=== PATIENT | female | born 1945 | race Caucasian/White ===

== ENCOUNTER 2017-10-28 09:53 | Inpatient (IN) | payer MEDICARE, BC ==
[~2017-10-28] VITALS: Ht 157.5 cm; Wt 53.3 kg
[2017-10-28] VITALS (9 sets, daily range): BP systolic 91–116; BP diastolic 43–66
[~2017-10-28 09:53] MED LIST: AMIT-1; ASPI-1071 PO; ATOR20TA66 PO; CHOL4PAC2; CITA40TA22 PO; CLON0.5T12 PO; DIPH1TAB PO; LEVO137T2 PO; MULT-342 PO
[2017-10-28 10:26] LABS: BASOPHILS % (AUTO) 0.1 % (0-1); EOSINOPHILS # (AUTO) 0.2 X10'3 (0-0.9); EOSINOPHILS % (AUTO) 1.4 % (0-6); HEMATOCRIT 40.9 % (35.0-45.0); HEMOGLOBIN 13.4 g/dl (12.0-16.0); LYMPHOCYTES # (AUTO) 1.2 X10'3 (1.1-4.8); LYMPHOCYTES % (AUTO) 7.5 % (21-51); MEAN CORPUSCULAR HEMOGLOBIN 28.7 PG (27.0-31.0); MEAN CORPUSCULAR HGB CONC 32.6 % (33.0-36.5); MEAN CORPUSCULAR VOLUME 88.2 FL (78-98); MEAN PLATELET VOLUME 8.2 FL (7.4-10.4); MONOCYTES # (AUTO) 0.9 X10'3 (0-0.9); MONOCYTES % (AUTO) 5.8 % (2-12); NEUTROPHILS # (AUTO) 13.8 X10'3 (1.8-7.7); NEUTROPHILS % (AUTO) 85.2 % (42-75); PLATELET COUNT 376 X10'3 (140-440); RED BLOOD COUNT 4.64 X10'6 (4.20-5.60); RED CELL DISTRIBUTION WIDTH 15.5 % (11.5-14.5); WHITE BLOOD COUNT 16.2 X10'3 (4.5-11.0)
[2017-10-28 10:49] LABS: ALANINE AMINOTRANSFERASE 12 U/L (12-78); ALBUMIN 2.9 G/DL (3.4-5.0); ALBUMIN/GLOBULIN RATIO 0.7 (1.1-1.5); ALKALINE PHOSPHATASE 126 IU/L (46-116); ANION GAP 11 (8-16); ASPARTATE AMINO TRANSFERASE 18 U/L (10-37); BILIRUBIN,TOTAL 0.4 MG/DL (0.1-1.0); BLOOD UREA NITROGEN 24 MG/DL (7-18); BUN/CREATININE RATIO 20.9 (6.6-38.0); CALCIUM 8.7 MG/DL (8.5-10.1); CHLORIDE 105 MMOL/L (99-107); CREATININE 1.15 MG/DL (0.40-0.90); GLUCOSE 110 MG/DL (70-104); POTASSIUM 3.1 MMOL/L (3.5-5.1); SODIUM 142 MMOL/L (135-145); TOTAL CARBON DIOXIDE 25.8 MMOL/L (24-32); TOTAL PROTEIN 6.9 G/DL (6.4-8.2); eGFR 47 ML/MIN
[2017-10-28] MEDS ORDERED: levoFLOXACIN-Levaquin 750MG/D5 150 ML IV STA (10:49)
[2017-10-28] MEDS ORDERED: normal saline 1000ml 1,000 ML IV ONE (10:50)
[2017-10-28] MEDS ORDERED: CITA-278 PO (11:13)
[2017-10-28] MEDS ORDERED: BUPR150T8 PO (11:14)
[2017-10-28] MEDS ORDERED: heparin 10,000 units/1 ML INJ IV PRN (11:15)
[2017-10-28] MEDS ORDERED: heparin 10,000 units/1 ML INJ IV ONE (11:15)
[2017-10-28] MEDS ORDERED: aspirin 325mg tablet PO ONE (11:15)
[2017-10-28] MEDS ORDERED: diltiazem-D5W 125mg/125ml 100 ML IV SCH (11:15)
[2017-10-28] MEDS ORDERED: ESCI5TAB PO (11:16)
[2017-10-28] MEDS ORDERED: ESCI20TA PO (11:18)
[2017-10-28] MEDS ORDERED: LEVO150T8 PO (11:20)
[2017-10-28] MEDS ORDERED: PSYL3.4P5 PO (11:26)
[2017-10-28] MEDS ORDERED: morphine 4 MG/ML inj SYRINge IV ONE (11:35)
[2017-10-28] MEDS ORDERED: ondansetron/PF 4mg/2ml inj IV ONE (11:35)
[2017-10-28] MEDS ORDERED: nitroGLYCERIN 0.4mg SUBLingual tab SL PRN (11:35)
[2017-10-28] MEDS ORDERED: iohexol 350MG/ML 100ml bottle IV ONE (11:41)
[2017-10-28] MEDS ORDERED: diltiazem-NS 100mg/100ml 100 ML IV SCH (11:42)
[2017-10-28 11:44] LABS: INR 1.1 INR; PARTIAL THROMBOPLASTIN TIME 32 SECONDS (22-32); PROTHROMBIN TIME 11.6 SECONDS (9.0-12.0)
[2017-10-28] MEDS ORDERED: ondansetron/PF 4mg/2ml inj IV PRN (13:05)
[2017-10-28] MEDS ORDERED: acetaminophen 325mg tablet PO PRN ×2 (13:05)
[2017-10-28] MEDS ORDERED: magnesium Cl slow-release 64mg tablet PO PRN (13:05)
[2017-10-28] MEDS ORDERED: docusate sod 100mg capsule PO PRN (13:05)
[2017-10-28] MEDS ORDERED: magnesium 4gm in 100ml NS 100 ML IV PRN (13:05)
[2017-10-28] MEDS ORDERED: magnesium 1gm/100ml D5W IVPB 100 ML IV PRN (13:05)
[2017-10-28] MEDS ORDERED: potassium Cl 40MEQ/NS 500ml 500 ML IV PRN ×2 (13:05)
[2017-10-28] MEDS ORDERED: potassium Cl 20 mEq SR tablet PO PRN ×2 (13:05)
[2017-10-28] MEDS: diltiazem-NS 100mg/100ml 100 ML IV SCH (13:10)
[2017-10-28] MEDS: traMADol 50MG tablet PO PRN ×2 (13:32→23:31)
[2017-10-28] MEDS: morphine 2 MG/ML inj. syringe IV PRN (15:03)
[2017-10-28] MEDS: normal saline 1000ml 1,000 ML IV SCH ×2 (15:09→23:02)
[2017-10-28] MEDS ORDERED: LIDOcaine 1% 30ml vial 5 ML in potassium Cl 40MEQ/NS 500ml 500 ML IV PRN (15:35)
[2017-10-28] MEDS ORDERED: clonazePAM 0.5mg tablet PO SCH (18:05)
[2017-10-28] MEDS ORDERED: heparin, porcine 5000 units/ml vial SQ SCH (20:00)
[2017-10-28] MEDS: buPROPion SR 150mg tablet PO SCH (20:07)
[2017-10-28] MEDS: clonazePAM 0.5mg tablet PO SCH (20:07)
[2017-10-28] MEDS: loperamide 2mg capsule PO SCH (20:07)
[2017-10-28] MEDS ORDERED: temazepam 15mg capsule PO PRN (21:00)
[2017-10-29] VITALS (17 sets, daily range): BP systolic 97–147; BP diastolic 43–74
[2017-10-29] MEDS: diltiazem-NS 100mg/100ml 100 ML IV SCH (05:27)
[2017-10-29 06:12] LABS: BASOPHILS # (AUTO) 0.1 X10'3 (0-0.2); BASOPHILS % (AUTO) 0.9 % (0-1); EOSINOPHILS # (AUTO) 0.1 X10'3 (0-0.9); EOSINOPHILS % (AUTO) 1.5 % (0-6); HEMOGLOBIN 9.7 g/dl (12.0-16.0); LYMPHOCYTES # (AUTO) 1.2 X10'3 (1.1-4.8); MEAN CORPUSCULAR HEMOGLOBIN 28.6 PG (27.0-31.0); MEAN CORPUSCULAR HGB CONC 32.5 % (33.0-36.5); MEAN PLATELET VOLUME 9.6 FL (7.4-10.4); MONOCYTES # (AUTO) 0.7 X10'3 (0-0.9); MONOCYTES % (AUTO) 7.3 % (2-12); NEUTROPHILS # (AUTO) 7.4 X10'3 (1.8-7.7); NEUTROPHILS % (AUTO) 77.3 % (42-75); PLATELET COUNT 254 X10'3 (140-440); RED BLOOD COUNT 3.41 X10'6 (4.20-5.60); RED CELL DISTRIBUTION WIDTH 14.2 % (11.5-14.5); WHITE BLOOD COUNT 9.5 X10'3 (4.5-11.0)
[2017-10-29 06:21] LABS: ALANINE AMINOTRANSFERASE 13 U/L (12-78); ALBUMIN 2.3 G/DL (3.4-5.0); ALBUMIN/GLOBULIN RATIO 0.7 (1.1-1.5); ALKALINE PHOSPHATASE 151 IU/L (46-116); ANION GAP 8 (8-16); ASPARTATE AMINO TRANSFERASE 17 U/L (10-37); BILIRUBIN,TOTAL 0.4 MG/DL (0.1-1.0); BLOOD UREA NITROGEN 18 MG/DL (7-18); BUN/CREATININE RATIO 19.4 (6.6-38.0); CALCIUM 8.1 MG/DL (8.5-10.1); CHLORIDE 107 MMOL/L (99-107); CREATININE 0.93 MG/DL (0.40-0.90); GLUCOSE 81 MG/DL (70-104); MAGNESIUM 1.8 MG/DL (1.5-2.4); SODIUM 140 MMOL/L (135-145); TOTAL CARBON DIOXIDE 24.6 MMOL/L (24-32); TOTAL PROTEIN 5.7 G/DL (6.4-8.2); eGFR 59 ML/MIN
[2017-10-29] MEDS ORDERED: regadenoson 0.4mg/5ml syringe IV ONE ×2 (07:10→11:18)
[2017-10-29] MEDS ORDERED: CAFFEINE CITRATE 60 MG/3 ML injection vial IV PRN (07:10)
[2017-10-29] MEDS ORDERED: nitroGLYCERIN 0.4mg SUBLingual tab SL PRN (07:10)
[2017-10-29] MEDS ORDERED: metoprolol tartrate 1mg/ml inj IV PRN (07:10)
[2017-10-29] MEDS: buPROPion SR 150mg tablet PO SCH ×2 (07:38→20:16)
[2017-10-29] MEDS: citalopram 20mg tablet PO SCH (07:39)
[2017-10-29] MEDS: levoTHYROXINE 75mcg tablet PO SCH (07:39)
[2017-10-29] MEDS: clonazePAM 0.5mg tablet PO SCH ×3 (07:40→20:16)
[2017-10-29] MEDS: loperamide 2mg capsule PO SCH ×2 (07:40→20:15)
[2017-10-29] MEDS: normal saline 1000ml 1,000 ML IV SCH ×2 (07:49→21:32)
[2017-10-29] MEDS ORDERED: CefTRIAXone 2gm/D5W 50ml 50 ML IV SCH (08:00)
[2017-10-29] MEDS ORDERED: K and/or MAG REPLACEMENT MC SCH (08:00)
[2017-10-29 08:13] LABS: CHOL/HDL RATIO 2.5 (0.00-4.99); CHOLESTEROL 115 MG/DL (0-200); HDL CHOLESTEROL 46 MG/DL (35-60); LDL CHOLESTEROL 53 MG/DL (50-100); TRIGLYCERIDES 62 MG/DL (20-135)
[2017-10-29] MEDS: atorvastatin 20mg tablet PO SCH (10:25)
[2017-10-29] MEDS: metoprolol tartrate 25mg tablet PO SCH ×2 (10:26→20:15)
[2017-10-29] MEDS: aspirin 81mg tablet.DR PO SCH (10:26)
[2017-10-29] MEDS ORDERED: CAFFEINE CITRATE 60 MG/3 ML injection vial IV ONE (11:17)
[2017-10-29] MEDS: morphine 2 MG/ML inj. syringe IV PRN (15:02)
[2017-10-29] MEDS: apixaban 2.5mg tablet PO SCH (20:14)
[2017-10-29] MEDS: lactobacillus rhamnosus 10,000 MMU CELLS/CAPSULE PO SCH (20:14)
[2017-10-29] MEDS: indomethacin 25mg capsule PO SCH (20:14)
[2017-10-29] MEDS ORDERED: colchicine 0.6mg tablet PO SCH (21:00)
[2017-10-30 02:00] VITALS: BP 142/73
[2017-10-30] MEDS: traMADol 50MG tablet PO PRN (03:10)
[2017-10-30 06:05] LABS: BASOPHILS % (AUTO) 0.3 % (0-1); EOSINOPHILS # (AUTO) 0.1 X10'3 (0-0.9); EOSINOPHILS % (AUTO) 1.1 % (0-6); HEMATOCRIT 30.1 % (35.0-45.0); LYMPHOCYTES # (AUTO) 1.1 X10'3 (1.1-4.8); LYMPHOCYTES % (AUTO) 11.9 % (21-51); MEAN CORPUSCULAR HEMOGLOBIN 28.7 PG (27.0-31.0); MEAN CORPUSCULAR HGB CONC 33.1 % (33.0-36.5); MEAN CORPUSCULAR VOLUME 86.6 FL (78-98); MEAN PLATELET VOLUME 9.1 FL (7.4-10.4); MONOCYTES # (AUTO) 0.7 X10'3 (0-0.9); NEUTROPHILS # (AUTO) 7.5 X10'3 (1.8-7.7); NEUTROPHILS % (AUTO) 79.7 % (42-75); PLATELET COUNT 262 X10'3 (140-440); RED BLOOD COUNT 3.47 X10'6 (4.20-5.60); WHITE BLOOD COUNT 9.4 X10'3 (4.5-11.0)
[2017-10-30 06:10] VITALS: BP 138/64
[2017-10-30 06:15] LABS: ALANINE AMINOTRANSFERASE 14 U/L (12-78); ALBUMIN 2.3 G/DL (3.4-5.0); ALBUMIN/GLOBULIN RATIO 0.7 (1.1-1.5); ALKALINE PHOSPHATASE 225 IU/L (46-116); ANION GAP 9 (8-16); ASPARTATE AMINO TRANSFERASE 17 U/L (10-37); BILIRUBIN,TOTAL 0.2 MG/DL (0.1-1.0); BLOOD UREA NITROGEN 20 MG/DL (7-18); BUN/CREATININE RATIO 21.7 (6.6-38.0); CALCIUM 8.5 MG/DL (8.5-10.1); CHLORIDE 108 MMOL/L (99-107); CREATININE 0.92 MG/DL (0.40-0.90); GLUCOSE 102 MG/DL (70-104); MAGNESIUM 1.7 MG/DL (1.5-2.4); SODIUM 141 MMOL/L (135-145); TOTAL CARBON DIOXIDE 24.4 MMOL/L (24-32); TOTAL PROTEIN 5.7 G/DL (6.4-8.2); eGFR 60 ML/MIN
[2017-10-30] MEDS ORDERED: levoTHYROXINE 25mcg tablet PO SCH (07:00)
[2017-10-30] MEDS ORDERED: pantoprazole 40mg Tablet.DR PO SCH (07:30)
[2017-10-30] MEDS: buPROPion SR 150mg tablet PO SCH (08:41)
[2017-10-30] MEDS: atorvastatin 20mg tablet PO SCH (08:41)
[2017-10-30] MEDS: aspirin 81mg tablet.DR PO SCH (08:41)
[2017-10-30] MEDS: lactobacillus rhamnosus 10,000 MMU CELLS/CAPSULE PO SCH (08:41)
[2017-10-30] MEDS: metoprolol tartrate 25mg tablet PO SCH ×2 (08:41→08:56)
[2017-10-30] MEDS: apixaban 2.5mg tablet PO SCH (08:42)
[2017-10-30] MEDS: loperamide 2mg capsule PO SCH (08:42)
[2017-10-30] MEDS: clonazePAM 0.5mg tablet PO SCH ×2 (08:42→12:24)
[2017-10-30] MEDS: levoTHYROXINE 75mcg tablet PO SCH (08:57)
[2017-10-30] MEDS: citalopram 20mg tablet PO SCH (08:58)
[2017-10-30] MEDS: normal saline 1000ml 1,000 ML IV SCH (10:02)
[2017-10-30 11:00] VITALS: BP 121/68
[2017-10-30] MEDS: indomethacin 25mg capsule PO SCH (12:24)
[2017-10-30] MEDS ORDERED: COL0.6T PO (14:55)
[2017-10-30] MEDS ORDERED: ATOR20TA66 PO (14:55)
[2017-10-30] MEDS ORDERED: METO25TA6 PO (14:55)
[2017-10-30] MEDS ORDERED: LEVO25TA7 PO (14:55)
[2017-10-30] MEDS ORDERED: APIX2.5T PO (14:55)
[2017-10-30 15:00] VITALS: BP 154/70
== END 2017-10-30 16:40 | disposition home or self-care (01) | DRG 871 ==
LOC: ER 09:53 → ED HOLD 13:02 → PCU 3S 14:32
PROVIDERS: ADMIT Internal Medicine; ATTEND Family Medicine
PROC: 4A02XM4 Measurement of Cardiac Total Activity, External Approach (ICD-10-PCS; principal; 2017-10-29)
PROC: 3E033HZ Introduction of Radioactive Substance into Peripheral Vein, Percutaneous Approach (ICD-10-PCS; 2017-10-29)
DX: A41.9 Sepsis, unspecified organism (principal); N17.0 Acute kidney failure with tubular necrosis; I31.3 Pericardial effusion (noninflammatory); J90 Pleural effusion, not elsewhere classified; K91.2 Postsurgical malabsorption, not elsewhere classified; I31.9 Disease of pericardium, unspecified; N18.9 Chronic kidney disease, unspecified; E03.9 Hypothyroidism, unspecified; E87.6 Hypokalemia; F41.9 Anxiety disorder, unspecified; I35.1 Nonrheumatic aortic (valve) insufficiency; I48.91 Unspecified atrial fibrillation; R94.6 Abnormal results of thyroid function studies; M25.512 Pain in left shoulder; K52.9 Noninfective gastroenteritis and colitis, unspecified; W01.0XXA Fall on same level from slipping, tripping and stumbling without subsequent striking against object, initial encounter; Z90.710 Acquired absence of both cervix and uterus; Z90.49 Acquired absence of other specified parts of digestive tract; Z98.84 Bariatric surgery status; Z88.5 Allergy status to narcotic agent; Z79.899 Other long term (current) drug therapy; Z79.01 Long term (current) use of anticoagulants; Z85.42 Personal history of malignant neoplasm of other parts of uterus; Y93.89 Activity, other specified; Y92.238 Other place in hospital as the place of occurrence of the external cause; Y99.8 Other external cause status
CPT/HCPCS: 36415; 70450; 71045; 71250; 73030; 78452; 80053; 80061; 83605; 83735; 83880; 84443; 84484; 85025; 85610; 85651; 85730; 86140; 87040; 93005; 93017; 93306; A9500; J0696; J1644; J1956; J2270; J2405; J3480; J3490; J7030; Q9967

== ENCOUNTER 2017-11-07 19:54 | Inpatient (IN) | payer MEDICARE, BC ==
[~2017-11-07] VITALS: Ht 162.6 cm; Wt 52.1 kg
[~2017-11-07 19:54] MED LIST changes: -AMIT-1; +APIX2.5T PO; -ASPI-1071 PO; +BUPR150T8 PO; -CHOL4PAC2; -CITA40TA22 PO; +COL0.6T PO; -DIPH1TAB PO; +ESCI20TA PO; -LEVO137T2 PO; +LEVO150T8 PO; +LEVO25TA7 PO; +METO25TA6 PO; +PSYL3.4P5 PO
[2017-11-07 21:29] LABS: BASOPHILS % (AUTO) 0 % (0-1); EOSINOPHILS # (AUTO) 0.1 X10'3 (0-0.9); EOSINOPHILS % (AUTO) 0.8 % (0-6); HEMATOCRIT 34.6 % (35.0-45.0); HEMOGLOBIN 11.6 g/dl (12.0-16.0); LYMPHOCYTES # (AUTO) 1.2 X10'3 (1.1-4.8); LYMPHOCYTES % (AUTO) 7.3 % (21-51); MEAN CORPUSCULAR HEMOGLOBIN 28.2 PG (27.0-31.0); MEAN CORPUSCULAR HGB CONC 33.3 % (33.0-36.5); MEAN CORPUSCULAR VOLUME 84.7 FL (78-98); MEAN PLATELET VOLUME 8.8 FL (7.4-10.4); MONOCYTES # (AUTO) 0.7 X10'3 (0-0.9); MONOCYTES % (AUTO) 4.2 % (2-12); NEUTROPHILS # (AUTO) 13.9 X10'3 (1.8-7.7); NEUTROPHILS % (AUTO) 87.7 % (42-75); PLATELET COUNT 353 X10'3 (140-440); RED BLOOD COUNT 4.09 X10'6 (4.20-5.60); RED CELL DISTRIBUTION WIDTH 14.9 % (11.5-14.5); WHITE BLOOD COUNT 15.9 X10'3 (4.5-11.0)
[2017-11-07] MEDS: nitroGLYCERIN 0.4mg SUBLingual tab SL PRN ×2 (21:36→21:59)
[2017-11-07 22:08] LABS: ALBUMIN 2.5 G/DL (3.4-5.0); ALBUMIN/GLOBULIN RATIO 0.8 (1.1-1.5); ALKALINE PHOSPHATASE 99 IU/L (46-116); ANION GAP 9 (8-16); BILIRUBIN,TOTAL 0.4 MG/DL (0.1-1.0); BLOOD UREA NITROGEN 11 MG/DL (7-18); BUN/CREATININE RATIO 15.1 (6.6-38.0); CALCIUM 8.1 MG/DL (8.5-10.1); CHLORIDE 106 MMOL/L (99-107); CREATINE KINASE 32 U/L (26-192); CREATININE 0.73 MG/DL (0.40-0.90); GLUCOSE 106 MG/DL (70-104); SODIUM 143 MMOL/L (135-145); TOTAL CARBON DIOXIDE 27.8 MMOL/L (24-32); TOTAL PROTEIN 5.7 G/DL (6.4-8.2); eGFR 79 ML/MIN
[2017-11-07 22:10] LABS: D-DIMER 2.11 MG/L FEU (0-0.50); INR 1.2 INR; PARTIAL THROMBOPLASTIN TIME 32 SECONDS (22-32); PROTHROMBIN TIME 12.5 SECONDS (9.0-12.0)
[2017-11-07 22:27] LABS: POTASSIUM 2.9 MMOL/L (3.5-5.1)
[2017-11-07 22:39] LABS: ALANINE AMINOTRANSFERASE 6 U/L (12-78)
[2017-11-07] MEDS ORDERED: Potassium Cl inj 40 MEQ in normal saline 250ml IV soln 230 ML IV ONE (22:40)
[2017-11-07 22:42] LABS: ASPARTATE AMINO TRANSFERASE 9 U/L (10-37)
[2017-11-07] MEDS ORDERED: POTASSIUM CL IV ONE (23:30)
[2017-11-07] MEDS ORDERED: [UNRECOGNIZED DRUG - OTHER] IV ONE (23:30)
[2017-11-07] MEDS: potassium 10mEq/100ml NS w/LIDOcaine (10mg/bag) IV SCH (23:38)
[2017-11-08] MEDS ORDERED: LOPE2TAB23 PO (01:04)
[2017-11-08] MEDS ORDERED: iohexol 350MG/ML 100ml bottle IV ONE (01:05)
[2017-11-08 01:18] LABS: MAGNESIUM 1.6 MG/DL (1.5-2.4)
[2017-11-08] MEDS: potassium 10mEq/100ml NS w/LIDOcaine (10mg/bag) IV SCH ×3 (01:34→02:35)
[2017-11-08] MEDS ORDERED: potassium Cl 20 mEq SR tablet PO STA (02:33)
[2017-11-08] MEDS ORDERED: furosemide 10 MG/1 ML 10ml inj IV ONE (02:35)
[2017-11-08] MEDS ORDERED: potassium Cl 20 mEq SR tablet PO PRN ×4 (02:40→17:15)
[2017-11-08] MEDS ORDERED: magnesium hydroxide 30ml (MOM) UD suspension PO PRN (02:40)
[2017-11-08] MEDS ORDERED: mag hydrox/Alum hydrox/simeth 30ml oral suspension PO PRN (02:40)
[2017-11-08] MEDS ORDERED: ondansetron/PF 4mg/2ml inj IV PRN (02:40)
[2017-11-08] MEDS ORDERED: acetaminophen 325mg tablet PO PRN (02:40)
[2017-11-08] MEDS: indomethacin 25mg capsule PO SCH ×4 (02:40→17:22)
[2017-11-08] MEDS ORDERED: potassium Cl 40MEQ/NS 500ml 500 ML IV PRN ×4 (02:40→17:15)
[2017-11-08] MEDS: buPROPion SR 150mg tablet PO SCH ×2 (03:12→20:31)
[2017-11-08] MEDS: acetaminophen 325mg tablet PO PRN (03:12)
[2017-11-08] MEDS: clonazePAM 0.5mg tablet PO SCH ×4 (03:12→20:33)
[2017-11-08 03:50] LABS: MAGNESIUM 1.1 MG/DL (1.5-2.4); POTASSIUM 4.1 MMOL/L (3.5-5.1)
[2017-11-08 04:10] VITALS: BP 131/65
[2017-11-08 06:00] VITALS: BP 135/73
[2017-11-08] MEDS: psyllium seed 3.4 gm packet PO SCH ×2 (08:00→20:00)
[2017-11-08] MEDS: metoprolol tartrate 25mg tablet PO SCH ×2 (08:13→20:33)
[2017-11-08] MEDS: citalopram 20mg tablet PO SCH (08:14)
[2017-11-08] MEDS: atorvastatin 20mg tablet PO SCH (08:14)
[2017-11-08] MEDS: apixaban 2.5mg tablet PO SCH ×2 (08:14→20:31)
[2017-11-08] MEDS: levoTHYROXINE 75mcg tablet PO SCH (08:56)
[2017-11-08] MEDS: loperamide 2mg capsule PO PRN (08:56)
[2017-11-08] MEDS: multivitamins, therapeutics tablet PO SCH (08:56)
[2017-11-08] MEDS: pantoprazole 40mg Tablet.DR PO SCH (11:45)
[2017-11-08 15:00] VITALS: BP 116/62
[2017-11-08] MEDS ORDERED: magnesium 4gm in 100ml NS 100 ML IV PRN (17:15)
[2017-11-08] MEDS: magnesium Cl slow-release 64mg tablet PO PRN (17:23)
[2017-11-08 19:00] VITALS: BP 146/76
[2017-11-08] MEDS: colchicine 0.6mg tablet PO SCH (20:33)
[2017-11-08 23:00] VITALS: BP 105/60
[2017-11-08] MEDS: nitroGLYCERIN 0.4mg SUBLingual tab SL PRN ×2 (23:44→23:54)
[2017-11-09] MEDS: nitroGLYCERIN 0.4mg SUBLingual tab SL PRN (00:02)
[2017-11-09] MEDS: morphine 2 MG/ML inj. syringe IV PRN (00:30)
[2017-11-09 03:00] VITALS: BP 125/78
[2017-11-09 04:30] LABS: BASOPHILS # (AUTO) 0.1 X10'3 (0-0.2); BASOPHILS % (AUTO) 0.3 % (0-1); EOSINOPHILS % (AUTO) 0.1 % (0-6); HEMOGLOBIN 12.7 g/dl (12.0-16.0); LYMPHOCYTES # (AUTO) 1.2 X10'3 (1.1-4.8); LYMPHOCYTES % (AUTO) 5.4 % (21-51); MEAN CORPUSCULAR HEMOGLOBIN 28.4 PG (27.0-31.0); MEAN CORPUSCULAR HGB CONC 33.4 % (33.0-36.5); MEAN CORPUSCULAR VOLUME 84.9 FL (78-98); MEAN PLATELET VOLUME 9.1 FL (7.4-10.4); MONOCYTES # (AUTO) 1.1 X10'3 (0-0.9); MONOCYTES % (AUTO) 4.9 % (2-12); NEUTROPHILS # (AUTO) 19.1 X10'3 (1.8-7.7); NEUTROPHILS % (AUTO) 89.3 % (42-75); PLATELET COUNT 459 X10'3 (140-440); RED BLOOD COUNT 4.48 X10'6 (4.20-5.60); RED CELL DISTRIBUTION WIDTH 15.1 % (11.5-14.5); WHITE BLOOD COUNT 21.4 X10'3 (4.5-11.0)
[2017-11-09] MEDS: magnesium Cl slow-release 64mg tablet PO PRN (04:31)
[2017-11-09 04:43] LABS: ALBUMIN 2.4 G/DL (3.4-5.0); ANION GAP 9 (8-16); BLOOD UREA NITROGEN 15 MG/DL (7-18); BUN/CREATININE RATIO 16.9 (6.6-38.0); CALCIUM 8.2 MG/DL (8.5-10.1); CHLORIDE 105 MMOL/L (99-107); CREATININE 0.89 MG/DL (0.40-0.90); GLUCOSE 113 MG/DL (70-104); MAGNESIUM 1.6 MG/DL (1.5-2.4); POTASSIUM 3.5 MMOL/L (3.5-5.1); SODIUM 141 MMOL/L (135-145); TOTAL CARBON DIOXIDE 27.2 MMOL/L (24-32); eGFR 63 ML/MIN
[2017-11-09 07:00] VITALS: BP 124/64
[2017-11-09] MEDS: levoTHYROXINE 25mcg tablet PO SCH (07:00)
[2017-11-09] MEDS: psyllium seed 3.4 gm packet PO SCH ×2 (08:00→20:00)
[2017-11-09] MEDS: metoprolol tartrate 25mg tablet PO SCH ×2 (08:25→22:19)
[2017-11-09] MEDS: atorvastatin 20mg tablet PO SCH (08:25)
[2017-11-09] MEDS: pantoprazole 40mg Tablet.DR PO SCH (08:26)
[2017-11-09] MEDS: apixaban 2.5mg tablet PO SCH (08:26)
[2017-11-09] MEDS: citalopram 20mg tablet PO SCH (08:26)
[2017-11-09] MEDS: levoTHYROXINE 75mcg tablet PO SCH (08:27)
[2017-11-09] MEDS: indomethacin 25mg capsule PO SCH ×3 (08:28→17:30)
[2017-11-09] MEDS: multivitamins, therapeutics tablet PO SCH (08:29)
[2017-11-09] MEDS: clonazePAM 0.5mg tablet PO SCH ×3 (08:30→22:21)
[2017-11-09] MEDS: buPROPion SR 150mg tablet PO SCH ×2 (08:40→22:19)
[2017-11-09 11:00] VITALS: BP 117/62
[2017-11-09 15:00] VITALS: BP 132/53
[2017-11-09 19:00] VITALS: BP 119/67
[2017-11-09] MEDS: colchicine 0.6mg tablet PO SCH (22:20)
[2017-11-09 23:00] VITALS: BP 104/55
[2017-11-10] VITALS (15 sets, daily range): BP systolic 88–125; BP diastolic 34–80
[2017-11-10] MEDS: nitroGLYCERIN 0.4mg SUBLingual tab SL PRN ×3 (03:50→04:36)
[2017-11-10] MEDS: morphine 2 MG/ML inj. syringe IV PRN (04:46)
[2017-11-10 05:46] LABS: BASOPHILS % (AUTO) 0.1 % (0-1); EOSINOPHILS # (AUTO) 0.1 X10'3 (0-0.9); EOSINOPHILS % (AUTO) 0.7 % (0-6); HEMATOCRIT 34.3 % (35.0-45.0); HEMOGLOBIN 11.3 g/dl (12.0-16.0); LYMPHOCYTES # (AUTO) 1.2 X10'3 (1.1-4.8); LYMPHOCYTES % (AUTO) 6.6 % (21-51); MEAN CORPUSCULAR HEMOGLOBIN 28.2 PG (27.0-31.0); MEAN CORPUSCULAR VOLUME 85.4 FL (78-98); MONOCYTES % (AUTO) 5.4 % (2-12); NEUTROPHILS # (AUTO) 16.3 X10'3 (1.8-7.7); NEUTROPHILS % (AUTO) 87.2 % (42-75); PLATELET COUNT 432 X10'3 (140-440); RED BLOOD COUNT 4.02 X10'6 (4.20-5.60); WHITE BLOOD COUNT 18.7 X10'3 (4.5-11.0)
[2017-11-10 06:34] LABS: ALBUMIN 2.1 G/DL (3.4-5.0); ANION GAP 10 (8-16); BLOOD UREA NITROGEN 23 MG/DL (7-18); CALCIUM 7.8 MG/DL (8.5-10.1); CHLORIDE 103 MMOL/L (99-107); CREATININE 0.96 MG/DL (0.40-0.90); GLUCOSE 89 MG/DL (70-104); MAGNESIUM 1.7 MG/DL (1.5-2.4); POTASSIUM 3.3 MMOL/L (3.5-5.1); SODIUM 140 MMOL/L (135-145); TOTAL CARBON DIOXIDE 27.3 MMOL/L (24-32); eGFR 57 ML/MIN
[2017-11-10] MEDS: levoTHYROXINE 25mcg tablet PO SCH (07:00)
[2017-11-10] MEDS: psyllium seed 3.4 gm packet PO SCH ×2 (08:00→20:00)
[2017-11-10 08:25] LABS: INR 1.2 INR; PROTHROMBIN TIME 12.7 SECONDS (9.0-12.0)
[2017-11-10] MEDS: magnesium Cl slow-release 64mg tablet PO PRN (09:14)
[2017-11-10] MEDS: atorvastatin 20mg tablet PO SCH (09:14)
[2017-11-10] MEDS: multivitamins, therapeutics tablet PO SCH (09:15)
[2017-11-10] MEDS: citalopram 20mg tablet PO SCH (09:15)
[2017-11-10] MEDS: clonazePAM 0.5mg tablet PO SCH ×3 (09:16→21:32)
[2017-11-10] MEDS: loperamide 2mg capsule PO PRN (09:16)
[2017-11-10] MEDS: pantoprazole 40mg Tablet.DR PO SCH (09:16)
[2017-11-10] MEDS: levoTHYROXINE 75mcg tablet PO SCH (09:17)
[2017-11-10] MEDS: buPROPion SR 150mg tablet PO SCH ×2 (09:17→21:31)
[2017-11-10] MEDS: indomethacin 25mg capsule PO SCH ×3 (09:17→21:30)
[2017-11-10] MEDS: metoprolol tartrate 25mg tablet PO SCH ×2 (09:23→20:00)
[2017-11-10] MEDS ORDERED: LIDOcaine 0.5% (5mg/ml) 50ml vial ONE (13:36)
[2017-11-10] MEDS: apixaban 2.5mg tablet PO SCH (21:30)
[2017-11-10] MEDS: colchicine 0.6mg tablet PO SCH (21:31)
[2017-11-10] MEDS: acetaminophen 325mg tablet PO PRN (21:44)
[2017-11-11 03:00] VITALS: BP 120/62
[2017-11-11 05:07] LABS: BASOPHILS % (AUTO) 0.2 % (0-1); EOSINOPHILS # (AUTO) 0.2 X10'3 (0-0.9); EOSINOPHILS % (AUTO) 1.7 % (0-6); HEMATOCRIT 33.4 % (35.0-45.0); LYMPHOCYTES # (AUTO) 1.4 X10'3 (1.1-4.8); LYMPHOCYTES % (AUTO) 10.9 % (21-51); MEAN CORPUSCULAR HEMOGLOBIN 28.1 PG (27.0-31.0); MEAN CORPUSCULAR HGB CONC 32.9 % (33.0-36.5); MEAN CORPUSCULAR VOLUME 85.4 FL (78-98); MEAN PLATELET VOLUME 9.4 FL (7.4-10.4); MONOCYTES # (AUTO) 0.9 X10'3 (0-0.9); MONOCYTES % (AUTO) 6.6 % (2-12); NEUTROPHILS # (AUTO) 10.6 X10'3 (1.8-7.7); NEUTROPHILS % (AUTO) 80.6 % (42-75); PLATELET COUNT 393 X10'3 (140-440); RED BLOOD COUNT 3.91 X10'6 (4.20-5.60); RED CELL DISTRIBUTION WIDTH 14.9 % (11.5-14.5); WHITE BLOOD COUNT 13.2 X10'3 (4.5-11.0)
[2017-11-11 05:37] LABS: ALBUMIN 2.1 G/DL (3.4-5.0); ANION GAP 10 (8-16); BLOOD UREA NITROGEN 26 MG/DL (7-18); BUN/CREATININE RATIO 24.8 (6.6-38.0); CALCIUM 8.4 MG/DL (8.5-10.1); CHLORIDE 105 MMOL/L (99-107); CREATININE 1.05 MG/DL (0.40-0.90); GLUCOSE 90 MG/DL (70-104); POTASSIUM 3.5 MMOL/L (3.5-5.1); SODIUM 141 MMOL/L (135-145); TOTAL CARBON DIOXIDE 26.2 MMOL/L (24-32); eGFR 52 ML/MIN
[2017-11-11 07:15] VITALS: BP 121/61
[2017-11-11] MEDS: acetaminophen 325mg tablet PO PRN ×2 (07:27→23:16)
[2017-11-11] MEDS: buPROPion SR 150mg tablet PO SCH ×2 (07:28→20:41)
[2017-11-11] MEDS: atorvastatin 20mg tablet PO SCH (07:29)
[2017-11-11] MEDS: levoTHYROXINE 25mcg tablet PO SCH (07:29)
[2017-11-11] MEDS: pantoprazole 40mg Tablet.DR PO SCH (07:29)
[2017-11-11] MEDS: levoTHYROXINE 75mcg tablet PO SCH (07:29)
[2017-11-11] MEDS: apixaban 2.5mg tablet PO SCH ×2 (07:29→20:41)
[2017-11-11] MEDS: multivitamins, therapeutics tablet PO SCH (07:30)
[2017-11-11] MEDS: clonazePAM 0.5mg tablet PO SCH ×3 (07:30→20:41)
[2017-11-11] MEDS: citalopram 20mg tablet PO SCH (07:30)
[2017-11-11] MEDS: indomethacin 25mg capsule PO SCH ×3 (07:30→17:30)
[2017-11-11] MEDS: metoprolol tartrate 25mg tablet PO SCH ×2 (07:34→20:41)
[2017-11-11] MEDS: psyllium seed 3.4 gm packet PO SCH ×2 (07:34→20:00)
[2017-11-11 10:30] LABS: TOTAL PROTEIN,BODY FLUID 3.2 G/DL
[2017-11-11 11:35] VITALS: BP 126/59
[2017-11-11 15:28] VITALS: BP 134/60
[2017-11-11 18:00] VITALS: BP 115/46
[2017-11-11] MEDS: colchicine 0.6mg tablet PO SCH (20:41)
[2017-11-11 22:00] VITALS: BP 106/56
[2017-11-12] MEDS: morphine 2 MG/ML inj. syringe IV PRN (01:07)
[2017-11-12 02:00] VITALS: BP 114/64
[2017-11-12 05:38] LABS: BASOPHILS # (AUTO) 0.1 X10'3 (0-0.2); BASOPHILS % (AUTO) 0.8 % (0-1); EOSINOPHILS # (AUTO) 0.3 X10'3 (0-0.9); EOSINOPHILS % (AUTO) 2.6 % (0-6); HEMATOCRIT 35.1 % (35.0-45.0); HEMOGLOBIN 11.6 g/dl (12.0-16.0); LYMPHOCYTES # (AUTO) 1.7 X10'3 (1.1-4.8); LYMPHOCYTES % (AUTO) 14.1 % (21-51); MEAN CORPUSCULAR HEMOGLOBIN 28.1 PG (27.0-31.0); MEAN CORPUSCULAR HGB CONC 33.1 % (33.0-36.5); MEAN PLATELET VOLUME 9.6 FL (7.4-10.4); MONOCYTES # (AUTO) 0.9 X10'3 (0-0.9); MONOCYTES % (AUTO) 7.4 % (2-12); NEUTROPHILS # (AUTO) 8.9 X10'3 (1.8-7.7); NEUTROPHILS % (AUTO) 75.1 % (42-75); PLATELET COUNT 481 X10'3 (140-440); RED BLOOD COUNT 4.13 X10'6 (4.20-5.60); RED CELL DISTRIBUTION WIDTH 14.9 % (11.5-14.5); WHITE BLOOD COUNT 11.8 X10'3 (4.5-11.0)
[2017-11-12 06:06] LABS: ANION GAP 9 (8-16); BLOOD UREA NITROGEN 23 MG/DL (7-18); BUN/CREATININE RATIO 24.7 (6.6-38.0); CALCIUM 7.9 MG/DL (8.5-10.1); CHLORIDE 104 MMOL/L (99-107); CREATININE 0.93 MG/DL (0.40-0.90); GLUCOSE 80 MG/DL (70-104); POTASSIUM 4.1 MMOL/L (3.5-5.1); SODIUM 141 MMOL/L (135-145); TOTAL CARBON DIOXIDE 28.4 MMOL/L (24-32); eGFR 59 ML/MIN
[2017-11-12 07:09] VITALS: BP 118/62
[2017-11-12] MEDS: clonazePAM 0.5mg tablet PO SCH ×3 (08:11→20:41)
[2017-11-12] MEDS: levoTHYROXINE 25mcg tablet PO SCH (08:12)
[2017-11-12] MEDS: apixaban 2.5mg tablet PO SCH ×2 (08:12→20:38)
[2017-11-12] MEDS: multivitamins, therapeutics tablet PO SCH (08:13)
[2017-11-12] MEDS: levoTHYROXINE 75mcg tablet PO SCH (08:13)
[2017-11-12] MEDS: pantoprazole 40mg Tablet.DR PO SCH (08:13)
[2017-11-12] MEDS: metoprolol tartrate 25mg tablet PO SCH ×2 (08:13→20:00)
[2017-11-12] MEDS: atorvastatin 20mg tablet PO SCH (08:13)
[2017-11-12] MEDS: buPROPion SR 150mg tablet PO SCH ×2 (08:13→20:41)
[2017-11-12] MEDS: citalopram 20mg tablet PO SCH (08:14)
[2017-11-12] MEDS: psyllium seed 3.4 gm packet PO SCH ×2 (08:16→20:48)
[2017-11-12] MEDS: indomethacin 25mg capsule PO SCH ×3 (08:36→17:37)
[2017-11-12 12:49] VITALS: BP 116/65
[2017-11-12] MEDS ORDERED: potassium Cl 20 mEq SR tablet PO STA (13:14)
[2017-11-12] MEDS ORDERED: furosemide 40mg/4ml inj IV ONE (13:15)
[2017-11-12 14:45] VITALS: BP 111/54
[2017-11-12] MEDS: loperamide 2mg capsule PO PRN (15:49)
[2017-11-12 18:00] VITALS: BP 119/59
[2017-11-12] MEDS: colchicine 0.6mg tablet PO SCH (20:41)
[2017-11-12 22:00] VITALS: BP 117/57
[2017-11-13 02:00] VITALS: BP 111/52
[2017-11-13 06:37] VITALS: BP 128/61
[2017-11-13] MEDS ORDERED: levoTHYROXINE 100mcg tablet PO SCH (07:00)
[2017-11-13] MEDS ORDERED: potassium Cl 20 mEq SR tablet PO SCH (08:00)
[2017-11-13] MEDS ORDERED: furosemide 40mg tablet PO SCH (08:00)
[2017-11-13] MEDS: psyllium seed 3.4 gm packet PO SCH (08:00)
[2017-11-13 08:07] LABS: BASOPHILS # (AUTO) 0.1 X10'3 (0-0.2); BASOPHILS % (AUTO) 1.5 % (0-1); EOSINOPHILS # (AUTO) 0.2 X10'3 (0-0.9); EOSINOPHILS % (AUTO) 2.6 % (0-6); HEMATOCRIT 33.3 % (35.0-45.0); HEMOGLOBIN 10.9 g/dl (12.0-16.0); LYMPHOCYTES # (AUTO) 1.6 X10'3 (1.1-4.8); LYMPHOCYTES % (AUTO) 17.8 % (21-51); MEAN CORPUSCULAR HEMOGLOBIN 27.8 PG (27.0-31.0); MEAN CORPUSCULAR HGB CONC 32.7 % (33.0-36.5); MEAN PLATELET VOLUME 9.2 FL (7.4-10.4); MONOCYTES # (AUTO) 0.7 X10'3 (0-0.9); MONOCYTES % (AUTO) 8.1 % (2-12); NEUTROPHILS # (AUTO) 6.3 X10'3 (1.8-7.7); PLATELET COUNT 416 X10'3 (140-440); RED BLOOD COUNT 3.92 X10'6 (4.20-5.60); WHITE BLOOD COUNT 9.1 X10'3 (4.5-11.0)
[2017-11-13 08:22] LABS: ALBUMIN 2.2 G/DL (3.4-5.0); ANION GAP 12 (8-16); BLOOD UREA NITROGEN 33 MG/DL (7-18); BUN/CREATININE RATIO 25.4 (6.6-38.0); CALCIUM 8.4 MG/DL (8.5-10.1); CHLORIDE 104 MMOL/L (99-107); GLUCOSE 85 MG/DL (70-104); POTASSIUM 4.2 MMOL/L (3.5-5.1); SODIUM 142 MMOL/L (135-145); TOTAL CARBON DIOXIDE 25.9 MMOL/L (24-32); eGFR 40 ML/MIN
[2017-11-13] MEDS: multivitamins, therapeutics tablet PO SCH (08:59)
[2017-11-13] MEDS: indomethacin 25mg capsule PO SCH ×2 (09:01→12:43)
[2017-11-13] MEDS: apixaban 2.5mg tablet PO SCH (09:01)
[2017-11-13] MEDS: citalopram 20mg tablet PO SCH (09:01)
[2017-11-13] MEDS: buPROPion SR 150mg tablet PO SCH (09:01)
[2017-11-13] MEDS: metoprolol tartrate 25mg tablet PO SCH (09:01)
[2017-11-13] MEDS: atorvastatin 20mg tablet PO SCH (09:01)
[2017-11-13] MEDS: clonazePAM 0.5mg tablet PO SCH ×2 (09:02→12:43)
[2017-11-13] MEDS: pantoprazole 40mg Tablet.DR PO SCH (09:06)
[2017-11-13] MEDS: loperamide 2mg capsule PO PRN (09:44)
[2017-11-13 11:00] VITALS: BP 134/69
[2017-11-13] MEDS ORDERED: LEVO100T9 PO (12:43)
[2017-11-13] MEDS ORDERED: FURO40TA4 PO (12:43)
[2017-11-13] MEDS ORDERED: APIX2.5T PO (12:43)
[2017-11-13] MEDS ORDERED: INDO25CA18 PO (12:43)
[2017-11-13] MEDS ORDERED: POTA10CA44 PO (12:43)
[2017-11-13] MEDS ORDERED: PANT40TA4 PO (12:43)
[2017-11-13 15:00] VITALS: BP 130/60
== END 2017-11-13 16:45 | disposition home or self-care (01) | DRG 314 ==
LOC: ER 19:55 → ED HOLD 11-08 02:38 → PCU 3S 11-08 04:00
PROVIDERS: ADMIT Internal Medicine; ATTEND Internal Medicine
PROC: B32T1ZZ Computerized Tomography (CT Scan) of Left Pulmonary Artery using Low Osmolar Contrast (ICD-10-PCS; 2017-11-08)
PROC: B3201ZZ Computerized Tomography (CT Scan) of Thoracic Aorta using Low Osmolar Contrast (ICD-10-PCS; 2017-11-08)
PROC: B32S1ZZ Computerized Tomography (CT Scan) of Right Pulmonary Artery using Low Osmolar Contrast (ICD-10-PCS; 2017-11-08)
PROC: 0W9B3ZX Drainage of Left Pleural Cavity, Percutaneous Approach, Diagnostic (ICD-10-PCS; principal; 2017-11-10)
DX: I31.9 Disease of pericardium, unspecified (principal); I50.33 Acute on chronic diastolic (congestive) heart failure; J81.1 Chronic pulmonary edema; K91.2 Postsurgical malabsorption, not elsewhere classified; J90 Pleural effusion, not elsewhere classified; F41.9 Anxiety disorder, unspecified; K52.9 Noninfective gastroenteritis and colitis, unspecified; I48.0 Paroxysmal atrial fibrillation; E03.9 Hypothyroidism, unspecified; E87.6 Hypokalemia; I08.0 Rheumatic disorders of both mitral and aortic valves; Z85.42 Personal history of malignant neoplasm of other parts of uterus; Z90.710 Acquired absence of both cervix and uterus; Z98.84 Bariatric surgery status; Z88.5 Allergy status to narcotic agent; Z90.49 Acquired absence of other specified parts of digestive tract; Z79.899 Other long term (current) drug therapy; Z92.3 Personal history of irradiation; Z92.21 Personal history of antineoplastic chemotherapy
CPT/HCPCS: 32555; 36415; 71045; 71275; 80048; 80053; 82550; 82553; 82945; 83615; 83735; 83874; 83880; 84132; 84157; 84443; 84484; 85025; 85379; 85610; 85651; 85730; 87040; 87070; 88108; 93005; 93308; 99291; 99292; J1940; J2001; J2270; J3480; J7030; Q9967

== ENCOUNTER 2017-11-25 11:55 | Outpatient (CLI) | payer MEDICARE, BC ==
[~2017-11-25 11:55] MED LIST changes: +FURO40TA4 PO; +INDO25CA18 PO; +LEVO100T9 PO; -LEVO150T8 PO; -LEVO25TA7 PO; +LOPE2TAB23 PO; +PANT40TA4 PO; +POTA10CA44 PO
[2017-11-25 13:43] LABS: ALBUMIN 2.6 G/DL (3.4-5.0); ANION GAP 7 (8-16); BLOOD UREA NITROGEN 24 MG/DL (7-18); BUN/CREATININE RATIO 19.7 (6.6-38.0); CALCIUM 8.6 MG/DL (8.5-10.1); CHLORIDE 105 MMOL/L (99-107); CREATININE 1.22 MG/DL (0.40-0.90); GLUCOSE 70 MG/DL (70-104); POTASSIUM 3.3 MMOL/L (3.5-5.1); SODIUM 143 MMOL/L (135-145); TOTAL CARBON DIOXIDE 30.8 MMOL/L (24-32); eGFR 43 ML/MIN
== END 2017-11-25 23:59 | disposition home or self-care (01) ==
LOC: LAB 11:55
PROVIDERS: ATTEND Internal Medicine Cardiovascular Disease
DX: J90 Pleural effusion, not elsewhere classified (principal); J98.11 Atelectasis; I50.32 Chronic diastolic (congestive) heart failure; R06.02 Shortness of breath; I30.0 Acute nonspecific idiopathic pericarditis; Z90.710 Acquired absence of both cervix and uterus
CPT/HCPCS: 36415; 71046; 80048; 83880; 85651; 86140

== ENCOUNTER 2017-12-17 09:31 | Outpatient (CLI) | payer MEDICARE, BC ==
[~2017-12-17 09:31] MED LIST changes: -POTA10CA44 PO
== END 2017-12-17 23:59 | disposition home or self-care (01) ==
LOC: RAD 09:31
PROVIDERS: ATTEND Internal Medicine Cardiovascular Disease
DX: J90 Pleural effusion, not elsewhere classified (principal); I50.22 Chronic systolic (congestive) heart failure; I51.7 Cardiomegaly; M85.88 Other specified disorders of bone density and structure, other site; Z90.49 Acquired absence of other specified parts of digestive tract; Z79.899 Other long term (current) drug therapy; Z96.652 Presence of left artificial knee joint
CPT/HCPCS: 71046

== ENCOUNTER 2018-01-05 08:53 | Day surgery (SDC) | payer MEDICARE, BC ==
[~2018-01-05] VITALS: Ht 157.5 cm; Wt 45.7 kg
[2018-01-05] MEDS ORDERED: LIDOcaine 1% 30ml preserv. free vial SQ ONE (09:30)
[2018-01-05] MEDS ORDERED: COLC0.6T69 PO (10:07)
[2018-01-05] MEDS ORDERED: LEVO200T8 PO (10:07)
[2018-01-05] MEDS ORDERED: PANT-47 PO (10:07)
[2018-01-05] MEDS ORDERED: FURO20TA4 PO (10:07)
[2018-01-05] MEDS ORDERED: INDO25CA18 PO (10:07)
[2018-01-05] MEDS ORDERED: METO25TA6 PO (10:07)
[2018-01-05] MEDS ORDERED: APIX5TAB3 PO (10:07)
[2018-01-05] MEDS ORDERED: ATOR20TA66 PO (10:07)
[2018-01-05 10:10] VITALS: BP 127/49
== END 2018-01-05 10:40 | disposition home or self-care (01) ==
LOC: SSTAY O 08:53
PROVIDERS: ATTEND Radiology Vascular & Interventional Radiology
DX: J90 Pleural effusion, not elsewhere classified (principal); E89.0 Postprocedural hypothyroidism; Z86.59 Personal history of other mental and behavioral disorders; Z79.01 Long term (current) use of anticoagulants; Z86.73 Personal history of transient ischemic attack (TIA), and cerebral infarction without residual deficits; Z85.42 Personal history of malignant neoplasm of other parts of uterus; Z87.19 Personal history of other diseases of the digestive system; Z96.652 Presence of left artificial knee joint; Z90.710 Acquired absence of both cervix and uterus; Z98.890 Other specified postprocedural states; Z79.899 Other long term (current) drug therapy
CPT/HCPCS: 76604; J3490

== ENCOUNTER 2018-05-04 13:39 | Emergency (ER) | payer MEDICARE, BC ==
[~2018-05-04] VITALS: Ht 157.5 cm; Wt 42.0 kg
[~2018-05-04 13:39] MED LIST changes: -APIX2.5T PO; +APIX5TAB3 PO; -COL0.6T PO; +COLC0.6T69 PO; +FURO20TA4 PO; -FURO40TA4 PO; -LEVO100T9 PO; +LEVO200T8 PO; +PANT-47 PO; -PANT40TA4 PO
[2018-05-04 16:00] LABS: BASOPHILS % (AUTO) 0.4 % (0-1); EOSINOPHILS # (AUTO) 0.2 X10'3 (0-0.9); EOSINOPHILS % (AUTO) 2.4 % (0-6); HEMOGLOBIN 10.8 g/dl (12.0-16.0); LYMPHOCYTES # (AUTO) 1.8 X10'3 (1.1-4.8); LYMPHOCYTES % (AUTO) 26.6 % (21-51); MEAN CORPUSCULAR HEMOGLOBIN 27.7 PG (27.0-31.0); MEAN CORPUSCULAR HGB CONC 31.9 g/dL (33.0-36.5); MEAN CORPUSCULAR VOLUME 86.9 FL (78-98); MEAN PLATELET VOLUME 7.7 FL (7.4-10.4); MONOCYTES # (AUTO) 0.6 X10'3 (0-0.9); MONOCYTES % (AUTO) 8.5 % (2-12); NEUTROPHILS # (AUTO) 4.2 X10'3 (1.8-7.7); NEUTROPHILS % (AUTO) 62.1 % (42-75); PLATELET COUNT 271 X10'3 (140-440); RED BLOOD COUNT 3.92 X10'6 (4.20-5.60); RED CELL DISTRIBUTION WIDTH 16.5 % (11.5-14.5); WHITE BLOOD COUNT 6.7 X10'3 (4.5-11.0)
[2018-05-04 16:39] LABS: ALANINE AMINOTRANSFERASE 32 U/L (12-78); ALBUMIN 3.7 G/DL (3.4-5.0); ALBUMIN/GLOBULIN RATIO 1.2 (1.1-1.5); ALKALINE PHOSPHATASE 77 IU/L (46-116); ANION GAP 11 (8-16); ASPARTATE AMINO TRANSFERASE 26 U/L (10-37); BILIRUBIN,TOTAL 0.3 MG/DL (0.1-1.0); BLOOD UREA NITROGEN 35 MG/DL (7-18); BUN/CREATININE RATIO 34.3 (6.6-38.0); CALCIUM 8.9 MG/DL (8.5-10.1); CHLORIDE 106 MMOL/L (99-107); CREATININE 1.02 MG/DL (0.40-0.90); GLUCOSE 101 MG/DL (70-104); POTASSIUM 4.1 MMOL/L (3.5-5.1); SODIUM 142 MMOL/L (135-145); TOTAL CARBON DIOXIDE 25.5 MMOL/L (24-32); TOTAL PROTEIN 6.7 G/DL (6.4-8.2); eGFR 53 ML/MIN
[2018-05-04] MEDS ORDERED: PROCHC RC (16:39)
[2018-05-04] MEDS ORDERED: LIDO30CR23 TOP (16:39)
[2018-05-04 17:01] VITALS: BP 105/55
== END 2018-05-04 17:03 | disposition home or self-care (01) ==
LOC: ER 13:40
DX: K64.4 Residual hemorrhoidal skin tags (principal); R53.1 Weakness; I20.9 Angina pectoris, unspecified; Z90.49 Acquired absence of other specified parts of digestive tract; Z90.710 Acquired absence of both cervix and uterus; Z98.890 Other specified postprocedural states; Z88.5 Allergy status to narcotic agent; Z79.899 Other long term (current) drug therapy
CPT/HCPCS: 36415; 80053; 85025; 99283

== ENCOUNTER 2018-06-28 05:12 | Outpatient (CLI) | payer MEDICARE, BC ==
[~2018-06-28 05:12] MED LIST changes: +LIDO30CR23 TOP; +PROCHC RC
== END 2018-06-28 23:59 | disposition home or self-care (01) ==
LOC: DIABETIC 05:12
PROVIDERS: ATTEND Colon & Rectal Surgery
DX: E11.9 Type 2 diabetes mellitus without complications (principal); Z71.3 Dietary counseling and surveillance; K91.2 Postsurgical malabsorption, not elsewhere classified; R19.7 Diarrhea, unspecified; E46 Unspecified protein-calorie malnutrition; Z68.1 Body mass index [BMI] 19.9 or less, adult
CPT/HCPCS: G0108

== ENCOUNTER 2018-08-02 04:14 | Outpatient (CLI) | payer MEDICARE, BC | END 2018-08-02 23:59 | disposition home or self-care (01) | LOC: DIABETIC 04:14 | PROVIDERS: ATTEND Colon & Rectal Surgery | DX: R19.7 Diarrhea, unspecified (principal) | CPT/HCPCS: 97802 ==

== ENCOUNTER 2018-12-29 16:14 | Emergency (ER) | payer MEDICARE, BC ==
[~2018-12-29] VITALS: Ht 157.5 cm; Wt 41.4 kg
[~2018-12-29 16:14] MED LIST changes: -CLON0.5T12 PO; +CLON0.5T4 PO; +INDO-12 PO; -INDO25CA18 PO
[2018-12-29] MEDS ORDERED: LORazepam 2 mg/ml vial IV ONE (17:40)
[2018-12-29] MEDS ORDERED: normal saline 1000ML IV soln IVB ONE (17:40)
[2018-12-29] MEDS ORDERED: morphine 4 MG/ML inj SYRINge IV ONE (17:40)
[2018-12-29 18:14] LABS: BASOPHILS # (AUTO) 0.1 X10'3 (0-0.2); BASOPHILS % (AUTO) 0.8 % (0-1); EOSINOPHILS # (AUTO) 0.2 X10'3 (0-0.9); EOSINOPHILS % (AUTO) 1.7 % (0-6); HEMATOCRIT 35.5 % (35.0-45.0); HEMOGLOBIN 11.6 g/dl (12.0-16.0); LYMPHOCYTES # (AUTO) 3.2 X10'3 (1.1-4.8); LYMPHOCYTES % (AUTO) 33.8 % (21-51); MEAN CORPUSCULAR HGB CONC 32.8 g/dL (33.0-36.5); MEAN CORPUSCULAR VOLUME 82.3 FL (78-98); MEAN PLATELET VOLUME 7.3 FL (7.4-10.4); MONOCYTES # (AUTO) 0.7 X10'3 (0-0.9); NEUTROPHILS # (AUTO) 5.4 X10'3 (1.8-7.7); NEUTROPHILS % (AUTO) 56.7 % (42-75); PLATELET COUNT 453 X10'3 (140-440); RED BLOOD COUNT 4.32 X10'6 (4.20-5.60); RED CELL DISTRIBUTION WIDTH 23.6 % (11.5-14.5); WHITE BLOOD COUNT 9.5 X10'3 (4.5-11.0)
[2018-12-29 18:31] LABS: ALANINE AMINOTRANSFERASE 23 U/L (12-78); ALBUMIN 4.2 G/DL (3.4-5.0); ALBUMIN/GLOBULIN RATIO 1.2 (1.1-1.5); ALKALINE PHOSPHATASE 97 IU/L (46-116); ANION GAP 16 (8-16); ASPARTATE AMINO TRANSFERASE 22 U/L (10-37); BILIRUBIN,TOTAL 0.5 MG/DL (0.1-1.0); BLOOD UREA NITROGEN 22 MG/DL (7-18); BUN/CREATININE RATIO 23.9 (6.6-38.0); CALCIUM 9.5 MG/DL (8.5-10.1); CHLORIDE 106 MMOL/L (99-107); CREATININE 0.92 MG/DL (0.40-0.90); GLUCOSE 91 MG/DL (70-104); POTASSIUM 3.9 MMOL/L (3.5-5.1); SODIUM 139 MMOL/L (135-145); TOTAL PROTEIN 7.6 G/DL (6.4-8.2); eGFR 60 ML/MIN
[2018-12-29 19:30] VITALS: BP 156/80
[2018-12-29] MEDS ORDERED: LORA-268 PO (19:52)
[2018-12-29 20:42] LABS: PLATELET ESTIMATE INCREASED
[2018-12-29 20:43] LABS: STOMATOCYTES FEW
[2018-12-29 20:44] LABS: ANISOCYTOSIS 3+; POLYCHROMASIA FEW
== END 2018-12-29 20:09 | disposition home or self-care (01) ==
LOC: ER 16:14
DX: F41.9 Anxiety disorder, unspecified (principal); L29.9 Pruritus, unspecified; G89.29 Other chronic pain; K62.89 Other specified diseases of anus and rectum; Z90.49 Acquired absence of other specified parts of digestive tract; Z98.890 Other specified postprocedural states; Z90.710 Acquired absence of both cervix and uterus; Z98.84 Bariatric surgery status; Z88.5 Allergy status to narcotic agent; Z79.899 Other long term (current) drug therapy
CPT/HCPCS: 36415; 80053; 85025; 96374; 96375; 99283; J2060; J2270; J7030

== ENCOUNTER 2019-08-01 12:58 | Outpatient (CLI) | payer MEDICARE, BC ==
[~2019-08-01 12:58] MED LIST changes: +APIX2.5T PO; -APIX5TAB3 PO; -ATOR20TA66 PO; -BUPR150T8 PO; +CEPH250T PO; -COLC0.6T69 PO; +DIPH-186 PO; +DONE10TA44 PO; +FERR-119 PO; -FURO20TA4 PO; -INDO-12 PO; +LEVO100T9 PO; -LEVO200T8 PO; -LIDO30CR23 TOP; +LOPE-190 PO; -LOPE2TAB23 PO; +MEMA10TA56 PO; -PANT-47 PO; -PROCHC RC; -PSYL3.4P5 PO
[2019-08-01] MEDS ORDERED: LIDOcaine 2% 5ml jelly ONE (13:24)
== END 2019-08-01 14:02 | disposition home or self-care (01) ==
LOC: WOUND CARE 12:58 → EDSTATUS 13:00 → WOUND CARE 14:02
PROVIDERS: ATTEND Nurse Practitioner
DX: T81.89XA Other complications of procedures, not elsewhere classified, initial encounter (principal); H70.012 Subperiosteal abscess of mastoid, left ear; E07.9 Disorder of thyroid, unspecified; I10 Essential (primary) hypertension; E03.9 Hypothyroidism, unspecified; E87.6 Hypokalemia; I48.0 Paroxysmal atrial fibrillation; F41.9 Anxiety disorder, unspecified; F03.90 Unspecified dementia, unspecified severity, without behavioral disturbance, psychotic disturbance, mood disturbance, and anxiety; Z90.49 Acquired absence of other specified parts of digestive tract; Z85.42 Personal history of malignant neoplasm of other parts of uterus; Z90.710 Acquired absence of both cervix and uterus; Z98.84 Bariatric surgery status; Z79.890 Hormone replacement therapy; Z79.899 Other long term (current) drug therapy; Z98.890 Other specified postprocedural states; Z96.659 Presence of unspecified artificial knee joint; Y92.89 Other specified places as the place of occurrence of the external cause; Y83.8 Other surgical procedures as the cause of abnormal reaction of the patient, or of later complication, without mention of misadventure at the time of the procedure
CPT/HCPCS: G0463

== ENCOUNTER 2019-08-08 11:14 | Day surgery (SDC) | payer MEDICARE, BC ==
[2019-08-08] MEDS ORDERED: LIDOcaine 2% 5ml jelly ONE (11:31)
== END 2019-08-08 12:08 | disposition home or self-care (01) ==
LOC: WOUND CARE 11:14
PROVIDERS: ATTEND Nurse Practitioner
DX: T81.89XD Other complications of procedures, not elsewhere classified, subsequent encounter (principal); H70.012 Subperiosteal abscess of mastoid, left ear; E07.9 Disorder of thyroid, unspecified; I10 Essential (primary) hypertension; E03.9 Hypothyroidism, unspecified; E87.6 Hypokalemia; I48.0 Paroxysmal atrial fibrillation; F41.9 Anxiety disorder, unspecified; F03.90 Unspecified dementia, unspecified severity, without behavioral disturbance, psychotic disturbance, mood disturbance, and anxiety; Z90.49 Acquired absence of other specified parts of digestive tract; Z85.42 Personal history of malignant neoplasm of other parts of uterus; Z90.710 Acquired absence of both cervix and uterus; Z98.84 Bariatric surgery status; Z79.890 Hormone replacement therapy; Z79.899 Other long term (current) drug therapy; Z98.890 Other specified postprocedural states; Z96.659 Presence of unspecified artificial knee joint; Y83.8 Other surgical procedures as the cause of abnormal reaction of the patient, or of later complication, without mention of misadventure at the time of the procedure
CPT/HCPCS: 97597

== ENCOUNTER 2019-08-15 09:29 | Day surgery (SDC) | payer MEDICARE, BC ==
[2019-08-15] MEDS ORDERED: LIDOcaine 2% 5ml jelly ONE (09:40)
[2019-08-15] MEDS ORDERED: nystatin 15 GM powder TP ONE (10:24)
== END 2019-08-15 10:29 | disposition home or self-care (01) ==
LOC: WOUND CARE 09:29
PROVIDERS: ATTEND Nurse Practitioner
DX: T81.89XD Other complications of procedures, not elsewhere classified, subsequent encounter (principal); H70.012 Subperiosteal abscess of mastoid, left ear; E07.9 Disorder of thyroid, unspecified; I10 Essential (primary) hypertension; E03.9 Hypothyroidism, unspecified; E87.6 Hypokalemia; I48.0 Paroxysmal atrial fibrillation; F41.9 Anxiety disorder, unspecified; F03.90 Unspecified dementia, unspecified severity, without behavioral disturbance, psychotic disturbance, mood disturbance, and anxiety; Z90.49 Acquired absence of other specified parts of digestive tract; Z85.42 Personal history of malignant neoplasm of other parts of uterus; Z90.710 Acquired absence of both cervix and uterus; Z98.84 Bariatric surgery status; Z79.890 Hormone replacement therapy; Z79.899 Other long term (current) drug therapy; Z98.890 Other specified postprocedural states; Z96.659 Presence of unspecified artificial knee joint; Y83.8 Other surgical procedures as the cause of abnormal reaction of the patient, or of later complication, without mention of misadventure at the time of the procedure
CPT/HCPCS: 97597

== ENCOUNTER 2019-08-22 09:35 | Day surgery (SDC) | payer MEDICARE, BC ==
[2019-08-22] MEDS ORDERED: LIDOcaine 2% 5ml jelly ONE (09:44)
== END 2019-08-22 10:30 | disposition home or self-care (01) ==
LOC: WOUND CARE 09:35
PROVIDERS: ATTEND Nurse Practitioner
DX: T81.89XD Other complications of procedures, not elsewhere classified, subsequent encounter (principal); H70.012 Subperiosteal abscess of mastoid, left ear; E07.9 Disorder of thyroid, unspecified; I10 Essential (primary) hypertension; E03.9 Hypothyroidism, unspecified; E87.6 Hypokalemia; I48.0 Paroxysmal atrial fibrillation; F41.9 Anxiety disorder, unspecified; F03.90 Unspecified dementia, unspecified severity, without behavioral disturbance, psychotic disturbance, mood disturbance, and anxiety; Z90.49 Acquired absence of other specified parts of digestive tract; Z85.42 Personal history of malignant neoplasm of other parts of uterus; Z90.710 Acquired absence of both cervix and uterus; Z98.84 Bariatric surgery status; Z79.890 Hormone replacement therapy; Z79.899 Other long term (current) drug therapy; Z98.890 Other specified postprocedural states; Z96.659 Presence of unspecified artificial knee joint; Y83.8 Other surgical procedures as the cause of abnormal reaction of the patient, or of later complication, without mention of misadventure at the time of the procedure
CPT/HCPCS: 97597

== ENCOUNTER 2019-08-29 09:40 | Day surgery (SDC) | payer MEDICARE, BC ==
[2019-08-29] MEDS ORDERED: LIDOcaine 2% 5ml jelly ONE (10:20)
== END 2019-08-29 11:02 | disposition home or self-care (01) ==
LOC: WOUND CARE 09:40
PROVIDERS: ATTEND Nurse Practitioner
DX: T81.89XD Other complications of procedures, not elsewhere classified, subsequent encounter (principal); H70.012 Subperiosteal abscess of mastoid, left ear; E07.9 Disorder of thyroid, unspecified; I10 Essential (primary) hypertension; E03.9 Hypothyroidism, unspecified; E87.6 Hypokalemia; I48.0 Paroxysmal atrial fibrillation; F41.9 Anxiety disorder, unspecified; F03.90 Unspecified dementia, unspecified severity, without behavioral disturbance, psychotic disturbance, mood disturbance, and anxiety; Z90.49 Acquired absence of other specified parts of digestive tract; Z85.42 Personal history of malignant neoplasm of other parts of uterus; Z90.710 Acquired absence of both cervix and uterus; Z98.84 Bariatric surgery status; Z79.890 Hormone replacement therapy; Z98.890 Other specified postprocedural states; Z96.659 Presence of unspecified artificial knee joint; Z79.899 Other long term (current) drug therapy; Y83.8 Other surgical procedures as the cause of abnormal reaction of the patient, or of later complication, without mention of misadventure at the time of the procedure
CPT/HCPCS: 97597

== ENCOUNTER 2019-09-12 09:50 | Day surgery (SDC) | payer MEDICARE, BC | END 2019-09-12 10:17 | disposition home or self-care (01) | LOC: WOUND CARE 09:50 | PROVIDERS: ATTEND Nurse Practitioner | DX: L97.111 Non-pressure chronic ulcer of right thigh limited to breakdown of skin (principal); H70.012 Subperiosteal abscess of mastoid, left ear; E07.9 Disorder of thyroid, unspecified; I10 Essential (primary) hypertension; E03.9 Hypothyroidism, unspecified; E87.6 Hypokalemia; I48.0 Paroxysmal atrial fibrillation; F41.9 Anxiety disorder, unspecified; F03.90 Unspecified dementia, unspecified severity, without behavioral disturbance, psychotic disturbance, mood disturbance, and anxiety; Z90.49 Acquired absence of other specified parts of digestive tract; Z85.42 Personal history of malignant neoplasm of other parts of uterus; Z90.710 Acquired absence of both cervix and uterus; Z98.84 Bariatric surgery status; Z79.890 Hormone replacement therapy; Z98.890 Other specified postprocedural states; Z96.659 Presence of unspecified artificial knee joint; Z79.899 Other long term (current) drug therapy | CPT/HCPCS: 87070; 87075; 87077; 87102; 87186; 97597 ==

== ENCOUNTER 2021-02-10 10:04 | Emergency (ER) | payer MEDICARE, BC ==
[~2021-02-10] VITALS: Ht 157.5 cm; Wt 43.6 kg
[~2021-02-10 10:04] MED LIST changes: -CEPH250T PO; +LOP25T PO; -METO25TA6 PO
[2021-02-10 10:49] VITALS: BP 128/58
[2021-02-10 11:42] LABS: BASOPHILS # (AUTO) 0.1 X10'3 (0-0.2); BASOPHILS % (AUTO) 0.7 % (0-1); EOSINOPHILS # (AUTO) 0.2 X10'3 (0-0.9); EOSINOPHILS % (AUTO) 2.1 % (0-6); HEMATOCRIT 44.1 % (35.0-45.0); HEMOGLOBIN 14.4 g/dl (12.0-16.0); LYMPHOCYTES # (AUTO) 1.2 X10'3 (1.1-4.8); LYMPHOCYTES % (AUTO) 11.5 % (21-51); MEAN CORPUSCULAR HEMOGLOBIN 30.9 PG (27.0-31.0); MEAN CORPUSCULAR HGB CONC 32.6 g/dL (33.0-36.5); MEAN CORPUSCULAR VOLUME 94.9 FL (78-98); MEAN PLATELET VOLUME 7.4 FL (7.4-10.4); MONOCYTES # (AUTO) 0.7 X10'3 (0-0.9); MONOCYTES % (AUTO) 6.9 % (2-12); NEUTROPHILS # (AUTO) 8.5 X10'3 (1.8-7.7); NEUTROPHILS % (AUTO) 78.8 % (42-75); PLATELET COUNT 333 X10'3 (140-440); RED BLOOD COUNT 4.65 X10'6 (4.20-5.60); RED CELL DISTRIBUTION WIDTH 16.6 % (11.5-14.5); WHITE BLOOD COUNT 10.8 X10'3 (4.5-11.0)
[2021-02-10 12:00] LABS: ALANINE AMINOTRANSFERASE 19 U/L (12-78); ALBUMIN 3.9 G/DL (3.4-5.0); ALBUMIN/GLOBULIN RATIO 1.1 (1.1-1.5); ALKALINE PHOSPHATASE 85 IU/L (46-116); ANION GAP 16 (8-16); ASPARTATE AMINO TRANSFERASE 21 U/L (10-37); BILIRUBIN,TOTAL 0.3 MG/DL (0.1-1.0); BLOOD UREA NITROGEN 27 MG/DL (7-18); BUN/CREATININE RATIO 24.5 (6.6-38.0); CALCIUM 9.1 MG/DL (8.5-10.1); CHLORIDE 107 MMOL/L (99-107); GLUCOSE 97 MG/DL (70-104); POTASSIUM 4.1 MMOL/L (3.5-5.1); SODIUM 142 MMOL/L (135-145); TOTAL CARBON DIOXIDE 19.5 MMOL/L (24-32); TOTAL PROTEIN 7.3 G/DL (6.4-8.2); eGFR 49 ML/MIN
== END 2021-02-10 17:49 | disposition left against medical advice (07) ==
LOC: ER 10:05
DX: R41.0 Disorientation, unspecified (principal); E86.0 Dehydration; K52.9 Noninfective gastroenteritis and colitis, unspecified; Z85.9 Personal history of malignant neoplasm, unspecified; Z90.89 Acquired absence of other organs; Z90.49 Acquired absence of other specified parts of digestive tract; Z98.84 Bariatric surgery status; Z90.710 Acquired absence of both cervix and uterus; Z98.890 Other specified postprocedural states; Z79.899 Other long term (current) drug therapy; Z85.038 Personal history of other malignant neoplasm of large intestine; Z88.8 Allergy status to other drugs, medicaments and biological substances
CPT/HCPCS: 36415; 80053; 85025; 99283